=== PATIENT | male | born 1995 | race Caucasian/White ===

== ENCOUNTER 2018-01-15 15:29 | Emergency (ER) | payer MEDICAID ==
--- NOTE | 2018-01-15 15:56 | ED Physician Chart ---
ED Chief Complaint/HPI - Patient Information Date Seen:: 01/15/18 Time Seen:: 15:50 Chief Complaint:: back strain History of Present Illness:: this is a 22yo male who was changing a car tire yesterday and now he has pain in his lower back. Allergies:: Allergies Allergy/AdvReac Type Severity Reaction Status Date / Time No Known Allergies Allergy Verified 01/15/18 15:42 Vitals:: Vital Signs - 8 hr 01/15/18 15:42 Temp 97.9 F HR 74 RR 18 BP 131/76 O2 Sat % 98 Historian:: Patient Review:: Nurse's Note Reviewed ED Review of Systems - Review of Systems General/Constitutional: No fever, No chills, No weight loss, No weakness, No diaphoresis, No edema, No loss of appetite Skin: No skin lesions, No rash, No bruising Head: No headache, No light-headedness Eyes: No loss of vision, No pain, No diplopia ENT: No earache, No nasal drainage, No sore throat, No tinnitus Neck: No neck pain, No swelling, No thyromegaly, No stiffness, No mass noted Cardio Vascular: No chest pain, No palpitations, No PND, No orthopnea, No edema Pulmonary: No SOB, No cough, No sputum, No wheezing GI: No nausea, No vomiting, No diarrhea, No pain, No melena, No hematochezia, No constipation, No hematemesis G/U: No dysuria, No frequency, No hematuria Musculoskeletal: No bone or joint pain, Back pain, No muscle pain Endocrine: No polyuria, No polydipsia Psychiatric: No prior psych history, No depression, No anxiety, No suicidal ideation Hematopoietic: No bruising, No lymphadenopathy Allergic/Immuno: No urticaria, No angioedema Neurological: No syncope, No focal symptoms, No weakness, No paresthesia, No headache, No seizure, No dizziness, No confusion, No vertigo ED Past Medical History - Past Medical History Obtainable: Yes Past Medical History: No significant medical hx Family History: None Social History: Non Smoker, No Alcohol, No Drug Use, Employed Surgical History: None Psychiatricy History: None Medication: Reviewed Family Medical History - Family Member Mother History Unknown: Yes Ethnicity: Living Status: Still Living ED Physical Exam - Physical Examination General/Constitutional: Awake, Well-developed, well-nourished, Alert, No distress, GCS 15, Non-toxic appearing, Ambulatory Head: Atraumatic Eyes: Lids, conjuctiva normal, PERRL, EOMI Skin: Nl inspection, No rash, No skin lesions, No ecchymosis, Well hydrated, No lymphadenopathy ENMT: External ears, nose nl, Nasal exam nl, Lips, teeth, gums nl Neck: Nontender, Full ROM w/o pain, No JVD, No nuchal rigidity, No bruit, No mass, No stridor Respiratory: Nl effort/Exclusion, Clear to Auscultation, No Wheeze/Rhonchi/Rales Cardio Vascular: RRR, No murmur, gallop, rubs, NL S1 S2 GI: No tenderness/rebounding/guarding, No organomegaly, No hernia, Normal BS's, Nondistended, No mass/bruits, No McBurney tenderness : No CVA tenderness Extremities: No tenderness or effusion, Full ROM, normal strength in all extremities, No edema, Normal digits & nails Other Extremities comments:: there is bilateral L3 TO S1 TENDERNESS WITH NORMAL BUT PAINFUL ROM. Neuro/Psych: Alert/oriented, DTR's symmetric, Normal sensory exam, Normal motor strength, Judgement/insight normal, Mood normal, Normal gait, No focal deficits Misc: Normal back, No paraspinal tenderness ED Labs/Radiology/EKG Results - Radiology Results Results: X-RAY OF THE LS SPINE= NAD ED Assessment - Assessment General Assessment: LOWER BACK STRAIN ED Septic Shock - . Is Septic Shock (SBP<90, OR Lactate>4 mmol\L) present?: No - <6hrs of presentation: Vital Signs: Vital Signs - 8 hr 01/15/18 15:42 Temp 97.9 F HR 74 RR 18 BP 131/76 O2 Sat % 98 ED Reassessment (Disposition) - Reassessment Reassessment Condition:: Improved - Diagnosis Diagnosis:: LOWER BACK strain - Aftercare/Follow up Instructions Aftercare/Follow-Up Instructions:: Counseled pt regarding lab results/diagnosis & need follow up, Refer to Discharge Instructions, Counseled pt & family regarding lab results/diagnosis & need follow up - Patient Disposition Discharge/Transfer:: Home Condition at Disposition:: Improved
--- NOTE | 2018-01-16 09:33 | Diagnostic Imaging Report ---
Exam: Lumbar sacral spine. HISTORY: Back pain Findings: Multiple views of lumbar sacral spine reviewed. The study demonstrates vertebral bodies of normal height with preserved intervertebral disc spaces. 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
== END 2018-01-15 16:52 | disposition home or self-care (01) ==
LOC: ER 15:29
DX: S39.012A Strain of muscle, fascia and tendon of lower back, initial encounter (principal); X58.XXXA Exposure to other specified factors, initial encounter; Y93.89 Activity, other specified; Y92.89 Other specified places as the place of occurrence of the external cause; Y99.8 Other external cause status
CPT/HCPCS: 99284; 96365; 72110; J1885; Z7502

== ENCOUNTER 2018-07-28 13:53 | Emergency (ER) | payer MEDICAID ==
--- NOTE | 2018-07-28 14:55 | ED Physician Chart ---
ED Chief Complaint/HPI - Patient Information Date Seen:: 07/28/18 Time Seen:: 14:35 Chief Complaint:: low back pain History of Present Illness:: Condition developed low back pain and 500 this morning after changing a flat tire. With ambulation pain radiates to the left buttocks. No bladder or bowel problems. Patient was seen here last for low back pain and prescribed medication. Allergies:: Allergies Allergy/AdvReac Type Severity Reaction Status Date / Time No Known Allergies Allergy Verified 07/28/18 14:07 Vitals:: Vital Signs - 8 hr 07/28/18 14:10 HR 61 RR 18 BP 105/51 O2 Sat % 99 Historian:: Patient Review:: Nurse's Note Reviewed ED Review of Systems - Review of Systems General/Constitutional: No fever, No chills, No weight loss, No weakness, No diaphoresis, No edema, No loss of appetite Skin: No skin lesions, No rash, No bruising Head: No headache, No light-headedness Eyes: No loss of vision, No pain, No diplopia ENT: No earache, No nasal drainage, No sore throat, No tinnitus Neck: No neck pain, No swelling, No thyromegaly, No stiffness, No mass noted Cardio Vascular: No chest pain, No palpitations, No PND, No orthopnea, No edema Pulmonary: No SOB, No cough, No sputum, No wheezing GI: No nausea, No vomiting, No diarrhea, No pain, No melena, No hematochezia, No constipation, No hematemesis G/U: No dysuria, No frequency, No hematuria Musculoskeletal: Bone or joint pain, Back pain, Muscle pain Endocrine: No polyuria, No polydipsia Psychiatric: No prior psych history, No depression, No anxiety, No suicidal ideation Hematopoietic: No bruising, No lymphadenopathy Allergic/Immuno: No urticaria, No angioedema Neurological: No syncope, No focal symptoms, No weakness, No paresthesia, No headache, No seizure, No dizziness, No confusion, No vertigo ED Past Medical History - Past Medical History Past Medical History: No significant medical hx Family History: Diabetes Melitus Social History: Smoker, Alcohol, Other (smokes about one pack per week; drinks about 24 beers weekend Wednesday and Wednesday) Surgical History: None Psychiatricy History: None Medication: None Family Medical History - Family Member Mother History Unknown: Yes Ethnicity: Living Status: Still Living ED Physical Exam - Physical Examination General/Constitutional: Awake, Well-developed, well-nourished, Alert, No distress Head: Atraumatic Eyes: Lids, conjuctiva normal, PERRL Skin: Nl inspection, No rash, No skin lesions, No ecchymosis ENMT: External ears, nose nl Neck: No nuchal rigidity Respiratory: Nl effort/Exclusion, Clear to Auscultation, No Wheeze/Rhonchi/Rales Cardio Vascular: RRR, No murmur, gallop, rubs, NL S1 S2 GI: No tenderness/rebounding/guarding : No CVA tenderness Neuro/Psych: No focal deficits Other Neuro/Psych comments:: Straight leg raising of 65-70 bilaterally; deep tendon reflexes knees one out of 4 and ankles 1.5 out of 4. ED Assessment - Assessment General Assessment: X-rays are not indicated for atraumatic low back pain. Suggested to patient that he take 2 [id number] ibuprofen 4 times a day for pain. ED Septic Shock - <6hrs of presentation: Vital Signs: Vital Signs - 8 hr 07/28/18 14:10 HR 61 RR 18 BP 105/51 O2 Sat % 99 ED Reassessment (Disposition) - Reassessment Reassessment Condition:: Unchanged - Diagnosis Diagnosis:: Lumbar sacral strain - Aftercare/Follow up Instructions Medication Prescribed:: Flexeril 10 mg #20 to take 1 3 times a day - Patient Disposition Discharge/Transfer:: Home Condition at Disposition:: Stable, Unchanged
== END 2018-07-28 15:21 | disposition home or self-care (01) ==
LOC: ER 13:53
DX: S39.012A Strain of muscle, fascia and tendon of lower back, initial encounter (principal); F17.210 Nicotine dependence, cigarettes, uncomplicated; X58.XXXA Exposure to other specified factors, initial encounter; Y93.89 Activity, other specified; Y92.89 Other specified places as the place of occurrence of the external cause; Y99.8 Other external cause status
CPT/HCPCS: 99283; 96372; J1885; Z7502

== ENCOUNTER 2018-09-18 01:10 | Emergency (ER) | payer MEDICAID ==
--- NOTE | 2018-09-18 01:31 | ED Physician Chart ---
ED Chief Complaint/HPI - Patient Information Date Seen:: 09/18/18 Time Seen:: 01:26 Chief Complaint:: puncture wound to the left arm History of Present Illness:: this is a 23 yo male who states that he fell while dancing tonight with a bottle in his left hand hitting the floor and a piece glass punctured his left forearm. since then he has numbness of the left 4th finger and weakness of on flexion. the bleeding has stopped. he denies all other injury. Allergies:: Allergies Allergy/AdvReac Type Severity Reaction Status Date / Time No Known Allergies Allergy Verified 07/28/18 14:07 Historian:: Patient, Friend ( girl friend) Review:: Nurse's Note Reviewed ED Review of Systems - Review of Systems General/Constitutional: No fever, No chills, No weight loss, No weakness, No diaphoresis, No edema, No loss of appetite Skin: No skin lesions, No rash, No bruising Head: No headache, No light-headedness Eyes: No loss of vision, No pain, No diplopia ENT: No earache, No nasal drainage, No sore throat, No tinnitus Neck: No neck pain, No swelling, No thyromegaly, No stiffness, No mass noted Cardio Vascular: No chest pain, No palpitations, No PND, No orthopnea, No edema Pulmonary: No SOB, No cough, No sputum, No wheezing GI: No nausea, No vomiting, No diarrhea, No pain, No melena, No hematochezia, No constipation, No hematemesis G/U: No dysuria, No frequency, No hematuria Musculoskeletal: No bone or joint pain, No back pain, No muscle pain, Other ( puncture wound of the left forearm) Endocrine: No polyuria, No polydipsia Psychiatric: No prior psych history, No depression, No anxiety, No suicidal ideation Hematopoietic: No bruising, No lymphadenopathy Allergic/Immuno: No urticaria, No angioedema Neurological: No syncope, No focal symptoms, No weakness, No paresthesia, No headache, No seizure, No dizziness, No confusion, No vertigo Family Medical History - Family Member Mother History Unknown: Yes Ethnicity: Living Status: Still Living ED Physical Exam - Physical Examination General/Constitutional: Awake, Well-developed, well-nourished, Alert, No distress, GCS 15, Non-toxic appearing, Ambulatory Head: Atraumatic Eyes: Lids, conjuctiva normal, PERRL, EOMI Skin: Nl inspection, No rash, No skin lesions, No ecchymosis, Well hydrated, No lymphadenopathy ENMT: External ears, nose nl, Nasal exam nl, Lips, teeth, gums nl Neck: Nontender, Full ROM w/o pain, No JVD, No nuchal rigidity, No bruit, No mass, No stridor Respiratory: Nl effort/Exclusion, Clear to Auscultation, No Wheeze/Rhonchi/Rales Cardio Vascular: RRR, No murmur, gallop, rubs, NL S1 S2 GI: No tenderness/rebounding/guarding, No organomegaly, No hernia, Normal BS's, Nondistended, No mass/bruits, No McBurney tenderness : No CVA tenderness Extremities: No tenderness or effusion, Full ROM, normal strength in all extremities, No edema, Normal digits & nails Other Extremities comments:: there are two small puncture wounds on the volar side, with weakness of the left fourth finger and numbness of the same finger. there is no bleeding noted. the puncture wounds are 1/4 cm and 1/8 cm on volar side but not thru and thru. Neuro/Psych: Alert/oriented, DTR's symmetric, Normal sensory exam, Normal motor strength, Judgement/insight normal, Mood normal, Normal gait, No focal deficits Misc: Normal back, No paraspinal tenderness ED Labs/Radiology/EKG Results - Radiology Results Results: x-ray of the left forearm = no fb seen ED Assessment - Assessment General Assessment: puncture wound of the left forearm with tendon laceration ED Septic Shock - . Is Septic Shock (SBP<90, OR Lactate>4 mmol\L) present?: No ED Reassessment (Disposition) - Reassessment Reassessment Condition:: Improved - Diagnosis Diagnosis:: puncture wounds of the left forearm with tendon laceration. - Aftercare/Follow up Instructions Aftercare/Follow-Up Instructions:: Counseled pt regarding lab results/diagnosis & need follow up, Refer to Discharge Instructions, Counseled pt & family regarding lab results/diagnosis & need follow up Medication Prescribed:: marshall woo - Patient Disposition Discharge/Transfer:: Home Condition at Disposition:: Improved
--- NOTE | 2018-09-18 09:10 | Diagnostic Imaging Report ---
Left forearm (2 views) HISTORY: Pain, trauma, question foreign body No focal bony lesions. No fractures. No abnormal radiographic radiopaque densities within the soft tissues. Specifically, no radiopaque foreign body identified. IMPRESSION: No acute abnormalities.
== END 2018-09-18 02:10 | disposition home or self-care (01) ==
LOC: ER 01:10
DX: S51.832A Puncture wound without foreign body of left forearm, initial encounter (principal); S51.812A Laceration without foreign body of left forearm, initial encounter; W25.XXXA Contact with sharp glass, initial encounter; Y93.89 Activity, other specified; Y92.89 Other specified places as the place of occurrence of the external cause; Y99.8 Other external cause status
CPT/HCPCS: 73090-TC-LT; J0696; Z7502